=== PATIENT | female | born 1965 | race Caucasian/White ===

== ENCOUNTER 2016-06-25 09:05 | Emergency (ER) | payer OTHER ==
[2016-06-25 09:57] LABS: HEMATOCRIT 42.4 % (34-45); HEMOGLOBIN 14.4 g/dL (11.2-15.7); MEAN CORPUSCULAR HEMOGLOBIN 33.3 pg (27.0-33.0); MEAN CORPUSCULAR VOLUME 98.1 fL (79-95); RED BLOOD COUNT 4.32 x10_6/uL (3.9-5.2); RED CELL DISTRIBUTION WIDTH 12.6 % (11.7-14.4); WHITE BLOOD COUNT 7.1 x10_3/uL (4.0-10.0)
[2016-06-25 09:58] LABS: BASO % 0.3 % (0.1-1.2); EOS # 0.2 10_X3_uL (0.0-0.4); EOS % 2.2 % (0.7-5.8); GRAN # 4.1 10_X3_uL (1.6-6.1); GRAN % 57.4 % (34.0-71.1); LYMPH # 2.3 10_X3_uL (1.2-3.7); LYMPH % 32.4 % (19.3-51.7); MEAN PLATELET VOLUME 9.9 fl (7.5-11.5); MONO # 0.6 10_X3_uL (0.2-0.9); MONO % 7.7 % (4.7-12.5); PLATELET COUNT 259 x10_3/uL (182-369)
== END 2016-06-25 11:13 | disposition home or self-care (01) ==
LOC: ER 09:05
PROVIDERS: Family Medicine
DX: J40 Bronchitis, not specified as acute or chronic (principal); R50.9 Fever, unspecified; J02.9 Acute pharyngitis, unspecified; F17.210 Nicotine dependence, cigarettes, uncomplicated
CPT/HCPCS: 36415; 85025; 87400; 99283

== ENCOUNTER 2016-07-07 09:12 | Emergency (ER) | payer OTHER ==
[2016-07-07 09:59] LABS: BASO % 0.4 % (0.1-1.2); EOS # 0.1 10_X3_uL (0.0-0.4); EOS % 1.1 % (0.7-5.8); GRAN % 53.7 % (34.0-71.1); HEMATOCRIT 45.9 % (34-45); HEMOGLOBIN 15.6 g/dL (11.2-15.7); LYMPH # 2.6 10_X3_uL (1.2-3.7); LYMPH % 34.6 % (19.3-51.7); MEAN CORPUSCULAR HEMOGLOBIN 33.7 pg (27.0-33.0); MEAN CORPUSCULAR VOLUME 99.1 fL (79-95); MEAN PLATELET VOLUME 9.9 fl (7.5-11.5); MONO # 0.8 10_X3_uL (0.2-0.9); MONO % 10.2 % (4.7-12.5); PLATELET COUNT 306 x10_3/uL (182-369); RED BLOOD COUNT 4.63 x10_6/uL (3.9-5.2); RED CELL DISTRIBUTION WIDTH 12.9 % (11.7-14.4); WHITE BLOOD COUNT 7.5 x10_3/uL (4.0-10.0)
== END 2016-07-07 10:31 | disposition home or self-care (01) ==
LOC: ER 09:12
PROVIDERS: General Practice
DX: R42 Dizziness and giddiness (principal); M54.2 Cervicalgia; H83.2X2 Labyrinthine dysfunction, left ear; F17.210 Nicotine dependence, cigarettes, uncomplicated; Z79.82 Long term (current) use of aspirin
CPT/HCPCS: 36415; 85025; 93005; 99284; 99284-25

== ENCOUNTER 2016-10-01 12:16 | Emergency (ER) | payer OTHER ==
[2016-10-01 12:49] LABS: BASO % 0.3 % (0.1-1.2); EOS # 0.1 10_X3_uL (0.0-0.4); EOS % 2.2 % (0.7-5.8); GRAN # 3.1 10_X3_uL (1.6-6.1); GRAN % 48.4 % (34.0-71.1); HEMATOCRIT 41.5 % (34-45); HEMOGLOBIN 14.3 g/dL (11.2-15.7); LYMPH # 2.5 10_X3_uL (1.2-3.7); LYMPH % 38.8 % (19.3-51.7); MEAN CORPUSCULAR HEMOGLOBIN 33.7 pg (27.0-33.0); MEAN CORPUSCULAR HGB CONC 34.5 g/dL (32.0-36.0); MEAN CORPUSCULAR VOLUME 97.9 fL (79-95); MEAN PLATELET VOLUME 9.8 fl (7.5-11.5); MONO # 0.7 10_X3_uL (0.2-0.9); MONO % 10.3 % (4.7-12.5); PLATELET COUNT 266 x10_3/uL (182-369); RED BLOOD COUNT 4.24 x10_6/uL (3.9-5.2); RED CELL DISTRIBUTION WIDTH 12.4 % (11.7-14.4); WHITE BLOOD COUNT 6.4 x10_3/uL (4.0-10.0)
== END 2016-10-01 13:50 | disposition home or self-care (01) ==
LOC: ER 12:16
PROVIDERS: Family Medicine
DX: J44.9 Chronic obstructive pulmonary disease, unspecified (principal); J20.9 Acute bronchitis, unspecified; R06.02 Shortness of breath; F17.210 Nicotine dependence, cigarettes, uncomplicated; Z79.899 Other long term (current) drug therapy
CPT/HCPCS: 36415; 71020; 85025; 99283-25